=== PATIENT | female | born 1940 | race Caucasian/White ===

== ENCOUNTER 2016-05-21 11:16 | Emergency (ER) | payer MEDICARE, OTHER ==
[~2016-05-21] VITALS: Ht 157.5 cm; Wt 49.5 kg
[~2016-05-21 11:16] MED LIST: AMLO5TAB22 PO; ATOR20TA PO; FLUT50SP EACH NARE; LEVO.1 PO; LORA0.5T PO; METO100 PO; NORC7.5T PO; OMEP20TA PO; PERI8.6T PO; QUIN20 PO; RIVA10 PO; SERT-132 PO; WALKER STANDARD; Z.0.WHEELELR
[2016-05-21 11:20] VITALS: BP 134/68; PULSE 90; RESP 20; TEMP 98.7; O2SAT 92
[2016-05-21] MEDS ORDERED: SODIUM CHLORIDE 0.9% FLUSH 5 ML FLUSH IVF PRN (11:45)
--- NOTE | 2016-05-21 11:45 | PD ---
HPI Chief Complaint: Cold / Flu Symptoms Time Seen by Provider: 11:37 Travel History International Travel<30 days: No Contact w/Intl Traveler<30days: No Traveled to known affect area: No History of Present Illness HPI Patient presents with complaints of malaise, cough, upper respiratory congestion for 2-3 weeks. Reports some mild nausea. Reports vomiting associated with severe cough. Reports loose stools. Reports she did receive a flu shot this year. Denies any new rashes. No tobacco exposure. Denies history of COPD. PFSH Past Medical History Hx Anticoagulant Therapy: No Anxiety: Yes Cardiovascular Problems: Yes (HTN) High Cholesterol: Yes Diabetes: No Diminished Hearing: Yes ([place]) Gastrointestinal Disorders: Yes ([place]) Hypertension: Yes Thyroid Disease: Yes ?: Not Past Surgical History Hysterectomy: No Social History Alcohol Use: Yes Tobacco Use: No Substance Use: No Allergies-Medications (Allergen,Severity, Reaction): Coded Allergies: Aspirin (Verified Allergy, Severe, CAUSES RASH, 05/21/16) Penicillin (Verified Allergy, Severe, CAUSES, 05/21/16) Sulfa (Verified Allergy, Severe, CAUSES RASH, 05/21/16) Reported Meds & Prescriptions Reported Meds & Active Scripts Active Reported Ferate (Ferrous Gluconate) 27 Mg Tab 325 Mg PO DAILY Quinapril (Quinapril HCl) 20 Mg Tab 20 Mg PO DAILY Metoprolol Tartrate 100 Mg Tab 100 Mg PO DAILY Lorazepam 0.5 Mg Tab 0.5-1 Mg PO HS PRN Trazodone (Trazodone HCl) 100 Mg Tab 100 Mg PO HS Sertraline (Sertraline HCl) 50 Mg Tab 50 Mg PO DAILY Omeprazole 20 Mg Tab 20 Mg PO DAILY Levothyroxine (Levothyroxine Sodium) 50 Mcg Tab 50 Mcg PO DAILY Lipitor (Atorvastatin Calcium) 20 Mg Tab 20 Mg PO HS Flonase Allergy Relief Nasal [place] (Fluticasone Nasal [place]) 50 Mcg/Act [place] 50 Mcg EACH NARE DAILY Fexofenadine (Fexofenadine HCl) 180 Mg Tab 180 Mg PO DAILY Caltrate 600+D (Calcium Carbonate-Cholecalciferol) 600-800 Mg-Unit Tab 1 Tab PO DAILY Amlodipine (Amlodipine Besylate) 10 Mg Tab 10 Mg PO DAILY Review of Systems General / Constitutional: No: Fever Eyes: No: Visual changes HENT: Positive: Sore Throat, Congestion, No: Headaches Cardiovascular: No: Chest Pain or Discomfort Respiratory: Positive: Cough, No: Shortness of Breath Gastrointestinal: No: Abdominal Pain Genitourinary: No: Dysuria Musculoskeletal: Positive: Myalgias, No: Pain Skin: No Rash Neurologic: No: Weakness Psychiatric: No: Depression Endocrine: No: Polydipsia Hematologic/Lymphatic: No: Easy Bruising Physical Exam Narrative GENERAL: Well-nourished, well-developed patient. SKIN: Warm and dry. HEAD: Normocephalic. EYES: No scleral icterus. No injection or drainage. Throat erythematous mild adenopathy no exudate NECK: Supple, trachea midline. No JVD or lymphadenopathy. CARDIOVASCULAR: Regular rate and rhythm without murmurs, gallops, or rubs. RESPIRATORY: Decreased breath sounds right lower lobe. No accessory muscle use. GASTROINTESTINAL: Abdomen soft, non-tender, nondistended. MUSCULOSKELETAL: No cyanosis, or edema. BACK: Nontender without obvious deformity. No CVA tenderness. Data Data Last Documented VS Vital Signs Date Time Temp Pulse Resp B/P Pulse Ox O2 Delivery O2 Flow Rate FiO2 05/21/16 14:30 75 18 114/54 92 Room Air 05/21/16 11:20 98.7 Orders Complete Blood Count With Diff (05/21/16 11:37) Comprehensive Metabolic Panel (05/21/16 11:37) Urinalysis - C+S If Indicated (05/21/16 11:37) Influenzae A/B Antigen (05/21/16 11:37) Iv Access Insert/Monitor (05/21/16 11:37) Ecg Monitoring (05/21/16 11:37) Oximetry (05/21/16 11:37) Chest, Single Ap (05/21/16 11:37) Sodium Chloride 0.9% Flush (Ns Flush) (05/21/16 11:45) Labs Laboratory Tests Test 05/21/16 12:00 White Blood Count 9.6 TH/MM3 Red Blood Count 3.98 MIL/MM3 Hemoglobin 11.6 GM/DL Hematocrit 34.5 % Mean Corpuscular Volume 86.6 FL Mean Corpuscular Hemoglobin 29.2 PG Mean Corpuscular Hemoglobin 33.7 % Concent Red Cell Distribution Width 14.9 % Platelet Count 388 TH/MM3 Mean Platelet Volume 7.9 FL Neutrophils (%) (Auto) 80.3 % Lymphocytes (%) (Auto) 10.1 % Monocytes (%) (Auto) 7.8 % Eosinophils (%) (Auto) 0.3 % Basophils (%) (Auto) 1.5 % Neutrophils # (Auto) 7.7 TH/MM3 Lymphocytes # (Auto) 1.0 TH/MM3 Monocytes # (Auto) 0.8 TH/MM3 Eosinophils # (Auto) 0.0 TH/MM3 Basophils # (Auto) 0.1 TH/MM3 CBC Comment DIFF FINAL Differential Comment Sodium Level 138 MEQ/L Potassium Level 3.0 MEQ/L Chloride Level 101 MEQ/L Carbon Dioxide Level 28.4 MEQ/L Anion Gap 9 MEQ/L Blood Urea Nitrogen 13 MG/DL Creatinine 0.74 MG/DL Estimat Glomerular Filtration 77 ML/MIN Rate Random Glucose 100 MG/DL Calcium Level 9.0 MG/DL Total Bilirubin 0.5 MG/DL Aspartate Amino Transf 13 U/L (AST/SGOT) Alanine Aminotransferase 14 U/L (ALT/SGPT) Alkaline Phosphatase 75 U/L Total Protein 8.2 GM/DL Albumin 3.0 GM/DL MDM Medical Decision Making Medical Screen Exam Complete: Yes Emergency Medical Condition: Yes Differential Diagnosis Pharyngitis, pneumonia, influenza, viral respiratory infection Narrative Course Last 72 hours Impressions Chest X-Ray 05/21/16 1137 Signed Impressions: Service Date/Time: Saturday, May 21, 2016 12:34 - CONCLUSION: 1. Stable parenchymal opacity with calcifications at the right lung apex from uncertain etiology. 2. Otherwise, no acute finding is appreciated. Les Brown MD Assessment and plan discussed with patient and daughter at bedside. Patient unable to provide urine. Diagnosis Primary Impression: Cough Patient Instructions: General Instructions Additional Instructions: Rest fluids and Motrin, encourage frequent handwashing, encourage vitamin C and zinc to boost immune system. Follow-up with PCP to assess progress. Med/Other Pt SpecificInfo: Prescription(s) given Scripts Azithromycin (Zithromax)500 Mg [id number] Mg PO DAILY #7 TAB Ref 0 Prov:Yossi Watson MD 05/21/16 Disposition: 01 DISCHARGE HOME Condition: Good Yossi Watson MD May 21, 2016 11:45
[2016-05-21 12:05] VITALS: RESP 16; O2SAT 93
[2016-05-21 12:08] LABS: AUTOMATED NEUTROPHIL # 7.7 TH/MM3 (1.8-7.7); BASOPHIL # 0.1 TH/MM3 (0-0.2); BASOPHIL % 1.5 % (0.0-2.0); EOSINOPHIL % 0.3 % (0.0-4.0); HEMATOCRIT 34.5 % (35.0-46.0); LYMPH % 10.1 % (9.0-44.0); MEAN CELL VOLUME 86.6 FL (80.0-100.0); MEAN CORPUSCULAR HEMOGLOBIN 29.2 PG (27.0-34.0); MEAN CORPUSCULAR HGB CONC 33.7 % (32.0-36.0); MONO % 7.8 % (0.0-8.0); NEUT % 80.3 % (16.0-70.0); PLATELET COUNT 388 TH/MM3 (150-450); RED BLOOD COUNT 3.98 MIL/MM3 (4.00-5.30); RED CELL DISTRIBUTION WIDTH 14.9 % (11.6-17.2); WHITE BLOOD COUNT 9.6 TH/MM3 (4.0-11.0)
[2016-05-21 12:13] LABS: HEMO FLAGS DIFF FINAL
[2016-05-21] MEDS ORDERED: FLUT1SPR5 EACH NARE (12:23)
[2016-05-21] MEDS ORDERED: METO100T PO (12:23)
[2016-05-21] MEDS ORDERED: AMLO10TA2 PO (12:23)
[2016-05-21] MEDS ORDERED: LIPI20TA PO (12:23)
[2016-05-21] MEDS ORDERED: CALTTAB PO (12:23)
[2016-05-21] MEDS ORDERED: OMEP20TA PO (12:23)
[2016-05-21] MEDS ORDERED: TRAZ100T4 PO (12:23)
[2016-05-21] MEDS ORDERED: QUIN20TA4 PO (12:23)
[2016-05-21] MEDS ORDERED: SERT-132 PO (12:23)
[2016-05-21] MEDS ORDERED: FEXO180T PO (12:23)
[2016-05-21] MEDS ORDERED: LEVO50TA4 PO (12:23)
[2016-05-21] MEDS ORDERED: FERR1TAB6 PO (12:23)
[2016-05-21] MEDS ORDERED: LORA-373 PO (12:23)
[2016-05-21 12:25] VITALS: BP 122/60; PULSE 69; RESP 16; O2SAT 92
[2016-05-21 12:45] LABS: ALKALINE PHOSPHATASE 75 U/L (45-117); ALT (GPT) 14 U/L (10-53); ANION GAP 9 MEQ/L (5-15); AST (GOT) 13 U/L (15-37); BICARBONATE 28.4 MEQ/L (21.0-32.0); BLOOD UREA NITROGEN 13 MG/DL (7-18); CHLORIDE 101 MEQ/L (98-107); GLOMERULAR FILTRATION RATE 77 ML/MIN (>89); SODIUM (NA) 138 MEQ/L (136-145); TOTAL BILIRUBIN ADULT 0.5 MG/DL (0.2-1.0)
--- NOTE | 2016-05-21 12:57 | RADHPO ---
EXAM DATE/TIME: 05/21/2016 12:34 [facility] COMPARISON: CHEST SINGLE AP, December 31, 2015, 0:18. INDICATIONS : Short of breath, cough MEDICAL HISTORY : None. SURGICAL HISTORY : None. ENCOUNTER: Initial ACUITY: 2 weeks PAIN SCORE: 0/10 LOCATION: Bilateral chest FINDINGS: Portable AP view of the chest demonstrates a normal-sized cardiac silhouette. Lungs are underinflated . There is a parenchymal opacity with calcifications in the medial right upper lung zone. The appeara nce is stable. No pleural effusion or pneumothorax is identified. Bones demonstrate no acute finding. There is levoscoliosis of the lumbar spine. CONCLUSION: 1. Stable parenchymal opacity with calcifications at the right lung apex from uncertain etiology. 2. Otherwise, no acute finding is appreciated. Les Brown MD on May 21, 2016 at 12:54 Board Certified Radiologist. This report was verified electronically.
[2016-05-21 13:41] VITALS: BP 118/56; PULSE 70; RESP 16; O2SAT 92
[2016-05-21 14:30] VITALS: BP 114/54; PULSE 75; RESP 18; O2SAT 92
[2016-05-21] MEDS ORDERED: ZITH500T PO (15:20)
[2016-05-21 15:45] VITALS: BP 126/58
== END 2016-05-21 15:46 | disposition home or self-care (01) ==
LOC: PHED 11:16
DX: R05 Cough (principal); R11.2 Nausea with vomiting, unspecified; I10 Essential (primary) hypertension; E07.9 Disorder of thyroid, unspecified; E78.00 Pure hypercholesterolemia, unspecified; H91.90 Unspecified hearing loss, unspecified ear; Z87.19 Personal history of other diseases of the digestive system; Z86.59 Personal history of other mental and behavioral disorders
CPT/HCPCS: 71010; 80053; 85025; 87804; 99283

== ENCOUNTER → 2017-02-19 | Outpatient (CLI) | payer OTHER ==
[~2017-02-19] MED LIST changes: +AMLO10TA2 PO; -AMLO5TAB22 PO; -ATOR20TA PO; +CALTTAB PO; +FERR1TAB6 PO; +FEXO180T PO; +FLUT1SPR5 EACH NARE; -FLUT50SP EACH NARE; -LEVO.1 PO; +LEVO50TA4 PO; +LIPI20TA PO; -METO100 PO; +METO100T PO; -NORC7.5T PO; -OMEP20TA PO; +OMEP20TA93 PO; -PERI8.6T PO; -QUIN20 PO; +QUIN20TA4 PO; -RIVA10 PO; +TRAZ100T4 PO; -WALKER STANDARD; -Z.0.WHEELELR; +ZITH500T PO
--- NOTE | 2017-02-20 12:05 | RSPPFT ---
DATE OF PROCEDURE: 02/19/17 COMMENTS: Spirometry shows FVC of 1.3 at 52% of predicted, FEV1 of 0.9 at 46%, FEV1/FVC ratio is decreased. Flow is decreased at FEF 25, FEF 50, FEF 75 and FEF 25-75. There is no response after bronchodilator treatment. Lung volumes show residual volume is decreased. TLC is decreased. Diffusion capacity is decreased. Flow volume loop indicates an obstructive pattern. Room air arterial blood gases show pH of 7.40, PCO2 of 46, PO2 of 87, BiCarb of 28 and O2 Saturation of 93%. IMPRESSION: 1. Mild obstructive lung disease. 2. No response after bronchodilator treatment. 3. Additional moderately severe restrictive lung disease. 4. Moderate loss in diffusion capacity. 5. No response after bronchodilator treatment. 6. Blood gases show normal oxygenation on room air.
== END ==
LOC: PHRSP 07:44
PROVIDERS: ATTEND Specialist
DX: J47.9 Bronchiectasis, uncomplicated (principal)
CPT/HCPCS: 36600; 82805; 94060; 94726; 94729

== ENCOUNTER 2017-04-04 07:40 | Day surgery (SDC) | payer OTHER ==
[~2017-04-04] VITALS: Ht 152.4 cm; Wt 42.7 kg
[2017-04-04 07:56] VITALS: BP 138/71; PULSE 66; RESP 20; TEMP 97.6; O2SAT 93
[2017-04-04] MEDS ORDERED: CALTCHW5 PO (08:15)
[2017-04-04] MEDS ORDERED: SODIUM CHLOR 0.9% 1000 ML INJ 1,000 ML IV SCH (08:15)
[2017-04-04] MEDS ORDERED: LOPE2CAP PO (08:15)
[2017-04-04] MEDS ORDERED: TRAZ100T10 PO (08:15)
[2017-04-04] MEDS ORDERED: ACCU20TA3 PO (08:15)
[2017-04-04] MEDS ORDERED: VITA100T54 PO (08:15)
[2017-04-04] MEDS ORDERED: FISHCAP4 PO (08:15)
[2017-04-04] MEDS ORDERED: VITA2000 PO (08:15)
[2017-04-04 08:47] LABS: AUTOMATED NEUTROPHIL # 4.5 TH/MM3 (1.8-7.7); BASOPHIL # 0.1 TH/MM3 (0-0.2); BASOPHIL % 0.8 % (0.0-2.0); EOSINOPHIL # 0.1 TH/MM3 (0-0.4); EOSINOPHIL % 1.6 % (0.0-4.0); HEMATOCRIT 33.5 % (35.0-46.0); HEMO FLAGS DIFF FINAL; LYMPH % 26.4 % (9.0-44.0); LYMPHOCYTE # 1.9 TH/MM3 (1.0-4.8); MEAN CELL VOLUME 88.7 FL (80.0-100.0); MEAN CORPUSCULAR HEMOGLOBIN 29.4 PG (27.0-34.0); MEAN CORPUSCULAR HGB CONC 33.1 % (32.0-36.0); MONO % 6.8 % (0.0-8.0); NEUT % 64.4 % (16.0-70.0); PLATELET COUNT 197 TH/MM3 (150-450); RED BLOOD COUNT 3.77 MIL/MM3 (4.00-5.30); RED CELL DISTRIBUTION WIDTH 19.8 % (11.6-17.2)
[2017-04-04] MEDS ORDERED: MIDAZOLAM HCL 2 MG/2 ML VIAL ONE (09:54)
[2017-04-04] MEDS ORDERED: LIDOCAINE 1%/EPINEPHrine 1:100,000 SOLN 20 ML VIAL ONE (09:57)
--- NOTE | 2017-04-04 10:56 | PD.RAD ---
Post CT Procedure Prog Note Pre Procedure Diagnosis: (1) Anemia Post Procedure Diagnosis: (1) Anemia Procedure Date: Apr 04, 2017 Supervising Radiologist: Markus Montgomery Anesthesia: Local, Analgesia, Conscious Sedation Plan of Activity Patient to Unit: ROPU Patient Condition: Good See PACS Report for procedural detail/treatment Biopsy Imaging Guidance: CT Side: Left Biopsy Procedure: Bone Marrow Specimen: Core Biopsy, Fine Needle Aspirate Fluid Description: Bloody Findings: Very thin cortex. Bx needle advanced through bone with minimal pressure Markus Montgomery MD Apr 04, 2017 10:56
[2017-04-04 11:10] VITALS: BP 119/60; PULSE 71; RESP 20; TEMP 98; O2SAT 93
[2017-04-04 11:25] VITALS: BP 117/59; PULSE 68; RESP 20; O2SAT 94
[2017-04-04 11:55] VITALS: BP 123/63; PULSE 67; RESP 20; O2SAT 94
[2017-04-04 12:19] LABS: BONE MARROW PROCESSING COMPLETE; IRON STAIN DONE; JENNER GIEMSA STAIN DONE
[2017-04-04 12:25] VITALS: BP 113/54; PULSE 70; RESP 20; O2SAT 94
[2017-04-04 12:55] VITALS: BP 96/45; PULSE 70; RESP 20; O2SAT 93
--- NOTE | 2017-04-04 15:55 | RADRPT ---
EXAM DATE/TIME: 04/04/2017 10:31 [facility] COMPARISON: No previous studies available for comparison. INDICATIONS : Anemia. SEDATION TIME: 20 minutes BIOPSY SITE: Left ilium. MEDICATION(S): 1.) 3 mg midazolam (Versed) IV 2.) 150 mcg fentanyl (Sublimaze) IV DEVICE(S): 1.) 11 gauge Bone marrow biopsy needle MEDICAL HISTORY : Gastroesophageal reflux disease. Hypertension. Anemia. SURGICAL HISTORY : Right hip. ENCOUNTER: Initial ACUITY: 1 day PAIN SCORE: 0/10 LOCATION: Left pelvis A total of one core specimen(s) were obtained and sent to the laboratory for pathologic evaluation. PROCEDURE: 1. CT guided bone marrow biopsy. Prior to the procedure informed consent was obtained. Any appropriate prior imaging studies were rev iewed. Using automated exposure control and adjustment of the mA and/or kV according to patient size , radiation dose was kept as low as reasonably achievable to obtain optimal diagnostic quality images . DICOM format image data is available electronically for review and comparison. The site was prepped in a sterile fashion. Full sterile technique was used, including cap, mask, jatinder rile gloves and gown and a large sterile sheet. Hand hygiene and 2% chlorhexidine and/or betadine/al cohol prep was utilized per protocol for cutaneous antisepsis. The skin and subcutaneous tissues wer e infiltrated with local anesthetic solution. With CT guidance the previously identified target was localized. Biopsy was performed using the presc ribed needle as above. Following biopsy marrow aspiration was performed with repeat puncture. Adequa te hemostasis was obtained with compression at the puncture site. Follow-up CT scan reveals no hemorrhage. Conscious sedation was performed with the prescribed dosages and duration as above in the presence of an independent trained radiology nurse to assist in the monitoring of the patient. EKG and oximetry remained stable throughout the procedure. The patient tolerated the procedure well and there were no complications. The patient was sent to Radiology Outpatient Unit in stable condition. CONCLUSION: 1. Uncomplicated CT guided bone marrow aspirate. 2. Uncomplicated CT guided bone marrow biopsy. Markus Montgomery MD on April 04, 2017 at 15:53 Board Certified Radiologist. This report was verified electronically.
== END 2017-04-04 13:15 | disposition home or self-care (01) ==
LOC: HRIP 07:40 → HRAD 07:40
PROVIDERS: ATTEND Internal Medicine
DX: D64.9 Anemia, unspecified (principal); I10 Essential (primary) hypertension; K21.9 Gastro-esophageal reflux disease without esophagitis
CPT/HCPCS: 38221; 77012; 85025; 85097; 88184; 88185; 88237; 88264; 88280; 88305; 88311; 88313; 99151; 99152; C1830; G0364; J2250; J3010; J7030